=== PATIENT | male | born 1965 | race Caucasian/White ===

== ENCOUNTER 2018-09-19 17:37 | Outpatient (REF) | payer OTHER, SELFPAY ==
[2018-09-19 21:11] LABS: Anion Gap 10.3 mmol/L (3-11); BUN 17 mg/dL (7-18); CO2 26.7 mmol/L (21.0-32.0); Calcium 9.2 mg/dL (8.5-10.1); Chloride 103 mmol/L (98-107); Glucose 132 mg/dL (70-100); Potassium 3.9 mmol/L (3.5-5.1); Sodium 140 mmol/L (136-145)
== END 2018-09-19 17:57 ==
LOC: NCHCN 17:37
PROVIDERS: PCP Internal Medicine; Visit Provider Physician Assistant Medical
DX: I10 Essential (primary) hypertension (principal)
CPT/HCPCS: 80048

== ENCOUNTER 2020-01-10 10:32 | Outpatient (REF) | payer OTHER, SELFPAY ==
[2020-01-10 19:43] LABS: ALT 48 U/L (16-63); AST 32 U/L (15-37); Albumin 3.9 g/dL (3.4-5.0); Alkaline Phosphatase 59 U/L (46-116); Anion Gap 9.2 mmol/L (3-11); BUN 14 mg/dL (7-18); Bilirubin, Total 0.6 mg/dL (0.2-1.0); CO2 25.8 mmol/L (21.0-32.0); CREATININE 0.93 mg/dL (0.70-1.30); Calcium 8.6 mg/dL (8.5-10.1); Calculated LDL 82 mg/dL (<100); Chloride 105 mmol/L (98-107); Cholesterol 133 mg/dL (<200); Glucose 139 mg/dL (74-106); HDL Cholesterol 32 mg/dL (40-60); Potassium 4.5 mmol/L (3.5-5.1); Sodium 140 mmol/L (136-145); Triglyceride 99 mg/dL (<150)
[2020-01-10 20:03] LABS: Abs Immature Grans 0.08 k/cumm (0.0-0.09); Absolute Basophil Count 0.06 k/cumm (0.0-0.2); Absolute Eosinophil Count 0.21 k/cumm (0.0-0.7); Absolute Lymphocyte Count 2.64 k/cumm (1.2-3.4); Absolute Monocyte Count 0.71 k/cumm (0.11-0.7); Absolute Neutrophil Count 6.26 k/cumm (1.2-6.7); Basophils % 0.6; Eosinophils % 2.1; HCT 45.6 % (40.0-50.0); HGB 14.9 g/dL (13.5-17.5); Immature Grans % 0.8 %; Lymphocytes % 26.5; Mean Corp. HGB Concentration 32.7 g/dL (32.0-36.0); Mean Corpuscular Hemoglobin 28.2 pg (27.0-33.0); Mean Corpuscular Volume 86.4 fL (80-95); Monocytes % 7.1; Neutrophils % 62.9; Platelet Count 269 x1000/uL (130-400); RBC 5.28 m/cumm (4.50-6.00); RBC Distribution Width 14.1 % (11.8-14.1); White Blood Cell Count 9.96 k/cumm (4.4-10.8)
[2020-01-10 20:36] LABS: Hemoglobin A1C 6.7 % (3.8-5.6)
== END 2020-01-10 10:52 ==
LOC: NCHCN 10:32
PROVIDERS: PCP Internal Medicine; Visit Provider Physician Assistant
DX: Z00.00 Encounter for general adult medical examination without abnormal findings (principal); E78.5 Hyperlipidemia, unspecified; I25.10 Atherosclerotic heart disease of native coronary artery without angina pectoris; I10 Essential (primary) hypertension
CPT/HCPCS: 80053; 80061; 83036; 85025

== ENCOUNTER 2021-01-28 17:33 | Outpatient (REF) | payer SELFPAY ==
[2021-01-28 18:28] LABS: CREATININE 0.7 mg/dL (0.70-1.30)
== END 2021-01-28 17:34 | disposition home or self-care (01) ==
LOC: NCHCN 17:33
PROVIDERS: PCP Internal Medicine; Visit Provider Physician Assistant
DX: E11.9 Type 2 diabetes mellitus without complications (principal); I10 Essential (primary) hypertension
CPT/HCPCS: 82565

== ENCOUNTER 2022-02-01 17:48 | Outpatient (REF) | payer OTHER, SELFPAY ==
[2022-02-01 19:46] LABS: Anion Gap 9.5 mmol/L (3-11); BUN 19 mg/dL (7-18); CO2 25.5 mmol/L (21.0-32.0); CREATININE 0.8 mg/dL (0.70-1.30); Calcium 8.6 mg/dL (8.5-10.1); Chloride 106 mmol/L (98-107); Glucose 97 mg/dL (74-106); Potassium 3.9 mmol/L (3.5-5.1); Sodium 141 mmol/L (136-145)
== END 2022-02-01 17:49 | disposition home or self-care (01) ==
LOC: NCHCN 17:48
PROVIDERS: PCP Internal Medicine; Visit Provider Physician Assistant
DX: I10 Essential (primary) hypertension (principal); E11.9 Type 2 diabetes mellitus without complications
CPT/HCPCS: 80048

== ENCOUNTER 2023-01-31 18:47 | Outpatient (REF) | payer OTHER, SELFPAY ==
[2023-01-31 19:15] LABS: ALT 32 U/L (16-63); AST 29 U/L (15-37); Albumin 4.1 g/dL (3.4-5.0); Alkaline Phosphatase 59 U/L (46-116); Anion Gap 9.1 mmol/L (3-11); BUN 15 mg/dL (7-18); Bilirubin, Total 0.5 mg/dL (0.2-1.0); CO2 27.9 mmol/L (21.0-32.0); CREATININE 0.9 mg/dL (0.70-1.30); Chloride 106 mmol/L (98-107); Glucose 119 mg/dL (74-106); Sodium 143 mmol/L (136-145); Total Protein 7.4 g/dL (6.4-8.2)
== END 2023-01-31 18:48 | disposition home or self-care (01) ==
LOC: NCHCN 18:47
PROVIDERS: PCP Internal Medicine; Visit Provider Physician Assistant
DX: E11.9 Type 2 diabetes mellitus without complications (principal)
CPT/HCPCS: 80053; 82043; 82570

== ENCOUNTER 2023-08-01 19:08 | Outpatient (REF) | payer OTHER, SELFPAY ==
[2023-08-01 20:11] LABS: COMMENT (LAB VIEW ONLY) 123.44 mg/dL; Microalb ug/mg Crea 40.9 ug/mg Cr
== END 2023-08-01 19:09 | disposition home or self-care (01) ==
LOC: NCHCN 19:08
PROVIDERS: PCP Internal Medicine; Visit Provider Physician Assistant
DX: E11.9 Type 2 diabetes mellitus without complications (principal)
CPT/HCPCS: 82043; 82570; 83036

== ENCOUNTER 2023-08-02 20:06 | Outpatient (REF) | payer OTHER, SELFPAY ==
[2023-08-02 21:18] LABS: Hemoglobin A1C 7.2 % (<5.7)
== END 2023-08-02 20:07 | disposition home or self-care (01) ==
LOC: NCHCN 20:06
PROVIDERS: PCP Internal Medicine; Visit Provider Physician Assistant
DX: E11.9 Type 2 diabetes mellitus without complications (principal)
CPT/HCPCS: 83036

== ENCOUNTER 2024-02-06 19:15 | Outpatient (REF) | payer OTHER, SELFPAY ==
[2024-02-06 21:08] LABS: Abs Immature Grans 0.08 10^3/uL (0.0-0.06); Absolute Basophil Count 0.09 10^3/uL (0.0-0.2); Absolute Eosinophil Count 0.26 10^3/uL (0.0-0.7); Absolute Lymphocyte Count 2.63 10^3/uL (1.2-3.4); Absolute Neutrophil Count 6.17 10^3/uL (1.2-6.7); Basophils % 0.9 %; Eosinophils % 2.6 %; HCT 46.9 % (40.0-50.0); HGB 15.2 g/dL (13.5-17.5); Immature Grans % 0.8 %; MCH 28.8 pg (27.0-33.0); MCHC 32.4 % (32.0-36.0); MCV 89 fL (80-95); MPV 10.9 fL (8.0-11.0); Monocytes % 8.9 %; Neutrophils % 60.8 %; Platelet Count 272 10^3/uL (130-400); RBC 5.27 10^6/uL (4.36-5.78); RDW 13.6 % (11.8-14.1); RDW-SD 44.3 fL; WBC 10.13 10^3/uL (4.4-10.8)
[2024-02-06 21:30] LABS: ALT 29 U/L (16-63); AST 26 U/L (15-37); Albumin 4.2 g/dL (3.4-5.0); Alkaline Phosphatase 66 U/L (46-116); BUN 15 mg/dL (7-18); CREATININE 0.9 mg/dL (0.70-1.30); Calcium 9.1 mg/dL (8.5-10.1); Chloride 107 mmol/L (98-107); Estimated GFR 98.38 (mL/min/1.73m2); Glucose 119 mg/dL (74-106); LDL CHOLESTEROL 79 mg/dL (<100); Potassium 3.9 mmol/L (3.5-5.1); Sodium 144 mmol/L (136-145); TSH 1.63 uIU/Ml (0.36-3.74); Total Protein 7.8 g/dL (6.4-8.2)
[2024-02-07 19:16] LABS: Hepatitis C Ab w Rflx HCV PCR Negative (Negative)
[2024-02-07 19:21] LABS: HIV-1/2 Ag & Ab Screen Negative (Negative)
== END 2024-02-06 19:16 | disposition home or self-care (01) ==
LOC: NCHCN 19:15
PROVIDERS: PCP Internal Medicine; Visit Provider Physician Assistant
DX: E11.9 Type 2 diabetes mellitus without complications (principal); R00.8 Other abnormalities of heart beat; Z11.4 Encounter for screening for human immunodeficiency virus [HIV]; Z11.59 Encounter for screening for other viral diseases
CPT/HCPCS: 80053; 83721; 86803; 87389; 84443; 85025

== ENCOUNTER 2024-05-06 01:49 | Outpatient (CLI) | payer OTHER, SELFPAY ==
--- NOTE | 2024-05-06 09:30 | DI.US_ITS ---
APPROVED REPORT EXAM: Comprehensive 2D, Doppler, and color-flow Echocardiogram Patient Location: Out-Patient [employer] Supervisor: Ross Cook RDCS (AE) Indications: Afib Other Information Technically limited study due to body habitus. Conclusion Normal left ventricular wall thickness and chamber size. Ejection fraction is 55 to 60%. Wall motio n is normal Normal right ventricular size and function Left atrium is moderately dilated. Right atrium is mildly dilated There are no structural valvular abnormalities Mild mitral regurgitation Wall motion Left Ventricle Left ventricle is mildly dilated. The left ventricular systolic function is normal. The left ventricu lar ejection fraction is within the normal range. There is normal left ventricular wall thickness. Th ere is normal LV segmental wall motion. There is no ventricular septal defect visualized. LVEF is 55- 60 %. Right Ventricle The right ventricle is normal size. The right ventricular systolic function is normal. Atria Left atrium is moderately dilated. Right atrium is mildly dilated. The interatrial septum is intact w ith no evidence for an atrial septal defect. Aortic Valve The aortic valve is normal in structure. Aortic valve is trileaflet. There is no aortic valvular sten osis. No aortic regurgitation is present. Mitral Valve The mitral valve is normal in structure. No evidence of mitral valve stenosis. Mild mitral regurgitat ion. Tricuspid Valve The tricuspid valve is normal in structure. There is no tricuspid valve stenosis. Trace tricuspid reg urgitation. Unable to assess PA pressure. Pulmonic Valve The pulmonary valve is normal in structure. There is no pulmonic valvular stenosis. There is no pulmo coreen valvular regurgitation. Great Vessels The aortic root is normal in size. The ascending aorta is normal in size. Aortic arch is normal in ca liber. IVC is normal in size and collapses >50% with inspiration. Pericardium There is no pericardial effusion. 2D Dimensions IVSD d PLAX 0.94 cm M: 0.6-1.2 Ao Root d 3.04 cm M: 3.1 - 3.7 LVPW d PLAX 0.89 cm M: 0.6 - 1.2 Ao Asc Diam d 3.24 cm M: 2.6 - 3.4 LVID d PLAX 6.36 cm M: 4.2 - 5.8 LVDs 4.22 cm M: 2.5 - 4.0 LV EF Teichholz 61.3 % FS 33.64 % LV EDV (Teich) 205.2 mL LV ESV (Teich) 79.3 mL Stroke Vol Index (Teich) 50.35 M-Mode TAPSE 2.95 cm (M/F) >1.7 Auto EF LV EDV A4C 186.5 mL LV EDV A2C 133.5 mL LV EDV BP 158.6 mL LV ESV A4C 82.0 mL LV ESV A2C 55.4 mL LV ESV BP 67.6 mL LVEF(%) A4C 56.0 % LVEF(%) A2C 58.5 % LVEF(%) BP 57.3 % LV SV A4C 104.5 ml LV SV A2C 78.1 ml LV SV BP 90.9 ml LV CO A4C 5.4 L/min LV CO A2C 4.0 L/min LV CO BP 4.7 L/min HR A4C 51.21 BPM HR A2C 50.99 BPM LV EDV Index (BP) LA Volume LA Length A4C 7.1 cm LA Length A2C 7.2 cm LA Area A4C s 22.96 cm2 LA Area A2C s 23.74 cm2 LA Vol A4C A-L 62.99 mL LA Vol A2C A-L 66.79 mL LA Vol Biplane A-L 65.1 mL LA Vol/BSA A4C A-L LA Vol/BSA A2C A-L LA Vol/BSA BP A-L 26.1 mL/m2 LA Vol A4C MOD 59.9 mL LA Vol A2C MOD 63.2 mL LA Vol BP MOD 61.7 mL RA Volume RA Area A4C 16.1 cm2 RA ESV A4C (A-L) 38.5mL RA Vol/BSA A4C A-L RA Length A4C 5.7 cm RA ESV A4C (MOD) 38.7mL LV Diastology MV E' medial 0.095 (>0.07 m/s) MV E Vmax 1.20 (0.4-1.3 m/s) MV E/E' MED 12.72 (<14) MV A Vmax 0.40 (0.4-1.3 m/s) MV E' lateral 0.118 (>0.1 m/s) E/A Ratio 3.0 MV E/E' LAT 10.21 (<14) MV E' Average 0.106 m/s MV E/E'(average) 11.33 Aortic Valve AoV Vmax 1.58 m/s LVOT Vmax 1.04 m/s AoV Peak Grad 10.0 mmHg LVOT Peak Grad 4.3 mmHg AoV Area (Vmax) 2.13 cm2 LVOT VTI 0.235 m AoV VTI 0.362 m LVOT Mean Grad 2.6 mmHg AoV Mean John. 1.10 m/s LVOT SV 76.35 mL AoV Mean Grad 5.5 mmHg LVOT Diam s 2.00 cm AoV Area (VTI) 2.11 cm2 AV Regurg Peak Gr. 10.04 mmHg Velocity Ratio 0.66 Mitral Valve MV DT 176 (160-240 msec) MV Vmax TIPS 1.13 m/s MV Mean Grad 1.4 (<2mmHg) MV VTI 0.401 m Pulmonary Valve PV Vmax 0.86 (0.5-1.5 m/s) RVOT Vmax 0.70 m/s PV Peak Grad 3.0 mmHg RVOT Peak Gr. 1.9 mmHg PV Mean John 0.64 m/s RVOT VTI 0.172 m PV Mean Grad 1.9 mmHg RVOT Mean Gr. 1.2 mmHg
== END 2024-05-06 02:09 ==
LOC: DI 01:49
PROVIDERS: PCP Physician Assistant; Visit Provider Internal Medicine Cardiovascular Disease
DX: I48.91 Unspecified atrial fibrillation (principal)
CPT/HCPCS: 93306

== ENCOUNTER 2024-11-04 03:16 | Outpatient (CLI) | payer OTHER, SELFPAY ==
[2024-11-04 15:29] LABS: HCT 44.8 % (40.0-50.0); HGB 14.1 g/dL (13.5-17.5); MCHC 31.5 % (32.0-36.0); MCV 89 fL (80-95); MPV 9.8 fL (8.0-11.0); Platelet Count 209 10^3/uL (130-400); RBC 5.03 10^6/uL (4.36-5.78); RDW 13.8 % (11.8-14.1); RDW-SD 44.5 fL; WBC 9.23 10^3/uL (4.4-10.8)
[2024-11-04 16:15] LABS: Anion Gap 8.1 mmol/L (3-11); BUN 11 mg/dL (7-18); CO2 26.9 mmol/L (21.0-32.0); CREATININE 0.9 mg/dL (0.70-1.30); Calcium 8.9 mg/dL (8.5-10.1); Chloride 107 mmol/L (98-107); Estimated GFR 97.78 (mL/min/1.73m2); Glucose 119 mg/dL (74-106); Potassium 3.7 mmol/L (3.5-5.1); Sodium 142 mmol/L (136-145)
[2024-11-06 17:50] LABS: Fructosamine 262 mcmol/L (200 - 285)
== END 2024-11-04 03:17 | disposition home or self-care (01) ==
LOC: LBO 03:16
PROVIDERS: PCP Physician Assistant; Visit Provider Student in an Organized Health Care Education/Training Program
DX: M17.11 Unilateral primary osteoarthritis, right knee (principal); Z01.818 Encounter for other preprocedural examination; E11.9 Type 2 diabetes mellitus without complications
CPT/HCPCS: 36415; 80048; 85027; 82985

== ENCOUNTER 2024-11-04 14:42 | Outpatient (CLI) | payer OTHER, SELFPAY ==
--- NOTE | 2024-11-04 14:05 | DI.RAD_ITS ---
Exam(s) XR STANDING ALIGNMENT EXAM: XR STANDING ALIGNMENT CLINICAL HISTORY: PRE OP R TKA. TECHNIQUE: 2D digital imaging was performed. Four images were obtained. COMPARISON: CR XR KNEE 3V RT from 02/08/2024 FINDINGS: BONES: There is a round sclerotic focus seen in the intertrochanteric region of the left femur. In t he right knee there is moderate osteoarthritis in the lateral joint compartment characterized by join t space narrowing and osteophytes. In the left knee, there is mild osteoarthritis in the lateral mara nt compartment. There is chondrocalcinosis in the medial femoral tibial joint on the left knee. The ankles are well maintained.There is no significant leg length discrepancy. SOFT TISSUE: Normal. IMPRESSION: Bilateral osteoarthritis of the knees, right greater than left. DATA REPOSITORY: RADIATION DOSE DELIVERED:
== END 2024-11-04 14:43 | disposition home or self-care (01) ==
LOC: DIORS 14:43
PROVIDERS: PCP Physician Assistant; Referring Provider Physician Assistant; Visit Provider Physician Assistant
DX: M17.11 Unilateral primary osteoarthritis, right knee (principal)
CPT/HCPCS: 77073

== ENCOUNTER 2024-11-19 06:59 | Day surgery (SDC) | payer OTHER, SELFPAY ==
[2024-11-19] VITALS (20 sets, daily range): BP systolic 99–177; BP diastolic 55–107; PULSE 54–95; RESP 14–20; TEMP 36–36.6; O2SAT 86–99; BMI 44.7
--- NOTE | 2024-11-19 07:18 | PDOC.DSDIS_ITS ---
Date of service: 11/19/24 Discharge Plan Disposition Patient Disposition: Home Condition: Good Discharge Details Reason For Visit: Right knee DJD Attending Provider: Costa Vera Primary Care Provider: Britt Adair Home Meds and New Rx's Prescriptions: New celecoxib [Celebrex] 200 mg capsule 200 mg PO BID PRNQty: 60 0RF Rx Instructions: Take one tablet twice daily for pain and inflammation acetaminophen 500 mg tablet 1,000 mg PO Q8H PRN Qty: 90 0RF Rx Instructions: Take two tablets up to every 8 hours as needed for pain pantoprazole 40 mg tablet,delayed release (DR/EC) 40 mg PO DAILY Qty: 14 0RF docusate sodium [Colace] 100 mg capsule 100 mg PO BID Qty: 28 0RF gabapentin 300 mg capsule 300 mg PO QHS Qty: 14 0RF Rx Instructions: Take one tablet at bedtime oxycodone 5 mg tablet 5 mg PO Q4H PRNQty: 18 0RF Rx Instructions: Take one tablet up to every 4 hours as needed for severe postoperative pain Continued aspirin [Adult Aspirin Regimen] 81 mg tablet,delayed release (DR/EC) 81 mg PO DAILY lisinopril 20 mg tablet 20 mg PO DAILY metoprolol succinate 25 mg tablet extended release 24 hr 25 mg PO DAILY Xarelto 20 mg tablet 20 mg PO DAILY Rx Instructions: must administer with evening meal rosuvastatin 20 mg tablet 20 mg PO DAILY nitroglycerin 0.4 mg tablet, sublingual Patient Comments: DISSOLVE ONE TABLET UNDER THE TONGUE EVERY 5 MINUTES NEEDED FOR CHEST PAIN. DO NOT EXCEED A TOTAL OF 3 DOSES IN 15 MINUTES Discharge Instructions Additional Instructions: Total Knee Discharge Instructions Activity: The most important activity is to walk and to work on gentle motion (both flexion and extension). You should try to take short walks a few times a day. It is important that when resting you work on keeping the knee straight. Avoid putting a pillow behind the knee as this will encourage flexion. Work on range of motion exercises as provided by Physical Therapy. - Start outpatient physical therapy within 2 weeks. - You should wear the AMY hose on both legs for 2 weeks. You may remove these at night. You may also use any compression sock in place of the AMY hose. - Utilize [employer] to review exercises, see videos on exercises and obtain basic information pertaining to your surgery and your recovery. Dressing: Remove the Balaji wrap by 2 days after your surgery and put on the AMY stocking given to you from the hospital. Keep the surgical dressing (underneath the BALAJI wrap) in place for at least one week. After the first week it may be removed and replaced with light gauze and tape or nothing. The wound and dressing may get wet after 3 days but avoid soaking the dressing or otherwise it will need to be changed. Many people prefer covering the dressing with cling wrap (saran wrap) to minimize it from getting soaked. If it gets wet, just pat dry. If it starts to peel off then it will need to be changed. Medications: - You should take Tylenol and anti-inflammatory Celebrex as your primary pain control medications. If the Celebrex is too expensive or not covered, please call the office for another alternative (Advil/Ibuprofen or Naproxen/Aleve) - You have been prescribed a stronger pain medication Oxycodone for breakthrough pain, take as needed as prescribed. - You have also been prescribed a stomach acid reduction agent Pantoprozole to help reduce stomach acid and reflux. - You have been prescribed Gabapentin to take at night for restlessness and nerve pain. - You will resume your normal anticoagulation of Xarelto and Aspirin tomorrow. - If you have constipation you should take Colace (which has been prescribed) or Miralax (which is available [id number]). It takes most people 3-4 days to have a bowel movement. Follow-up: 2 weeks If you have any acute concerns or questions, please do not hesitate to contact the office at [phone]. You may contact Dr. Vera with any questions after hours through the hospital at [phone] or on his cell phone at [phone]. Referrals: Costa Vera MD [ [facility] STAFF PHYSICIAN] - Equipment/Supplies: Walker Activity:: Elevate Remove Dressings/Wound Care:: Do Not Remove Shower/Bathe:: Cover Diet:: As Tolerated Discharge Orders Discharge Orders: Discharge Order (Routine); Ordered 11/19/24 Ordered By: Michaela Espitia
[2024-11-19] MEDS: Celecoxib 200 MG CAP 400 MG PO (07:33)
[2024-11-19] MEDS: Gabapentin 300 MG CAP PO (07:33)
[2024-11-19] MEDS: Acetaminophen 500 MG TAB 1000 MG PO (07:33)
--- NOTE | 2024-11-19 07:48 | ANES.PREOP_ITS ---
General Info Date of Service Date Performed: 11/19/24 Height: 5 ft 9 in Weight: 137.5 kg Body Mass Index (BMI): 44.7 Surgical Procedure: Operation Date: 11/19/24 09:25 Proposed Procedure Side Surgeon p Knee Total Arthroplasty Right Costa Vera MD Actual Procedure Side Surgeon p Knee Total Arthroplasty Right Costa Vera MD Pre-Op Diagnosis Post-Op Diagnosis Osteoarthritis of right knee Meds Allergies and Home Medications Allergies Allergy/AdvReac Type Severity Reaction Status Date / Time No Known Allergies Allergy Verified 11/19/24 07:12 Home Medication ?Medication ?Instructions ?Recorded aspirin 81 mg tablet,delayed 81 mg PO DAILY 02/20/24 release (Adult Aspirin Regimen) lisinopril 20 mg tablet 20 mg PO DAILY 02/20/24 metoprolol succinate 25 mg 25 mg PO DAILY 02/20/24 tablet,extended release 24 hr rivaroxaban 20 mg tablet (Xarelto) 20 mg PO DAILY 02/20/24 rosuvastatin 20 mg tablet 20 mg PO DAILY 11/04/24 acetaminophen 500 mg tablet 1,000 mg (2 x 500 mg) PO Q8H PRN 11/19/24 pain #90 tabs celecoxib 200 mg capsule (Celebrex) 200 mg PO BID PRN #60 caps 11/19/24 docusate sodium 100 mg capsule 100 mg PO BID #28 caps 11/19/24 (Colace) gabapentin 300 mg capsule 300 mg PO QHS #14 caps 11/19/24 nitroglycerin 0.4 mg sublingual mg 11/19/24 tablet oxycodone 5 mg tablet 5 mg PO Q4H PRN #18 tabs 11/19/24 pantoprazole 40 mg tablet,delayed 40 mg PO DAILY #14 tabs 11/19/24 release Current Visit Medications: Current Medications Generic Name Dose Route Start Last Admin Trade Name Freq PRN Reason Stop Dose Admin Acetaminophen 1,000 mg 11/19/24 06:00 11/19/24 07:33 Acetaminophen 500 Mg Tab PO 11/19/24 23:59 1,000 mg PREOP JUAN FRANCISCO Administration Celecoxib 400 mg 11/19/24 06:00 11/19/24 07:33 Celecoxib 200 Mg Cap PO 11/19/24 23:59 400 mg PREOP JUAN FRANCISCO Administration Gabapentin 300 mg 11/19/24 06:00 11/19/24 07:33 Gabapentin 300 Mg Cap PO 11/19/24 23:59 300 mg PREOP JUAN FRANCISCO Administration Hydromorphone HCl 0.5 mg 11/19/24 07:17 Hydromorphone 2 Mg/Ml Syr IVP 12/19/24 07:16 Q2H PRN PRN Ringer's Solution 1,000 mls @ 80 mls/hr 11/19/24 06:00 IV 11/19/24 23:59 INFUSION JUAN FRANCISCO Cefazolin Sodium 3,000 mg/ 100 mls @ 200 mls/hr 11/19/24 06:00 Sodium Chloride IV 11/19/24 23:59 PREOP JUAN FRANCISCO Tranexamic Acid/Sodium Chloride 1,000 mg in 100 mls @ 600 mls/hr 11/19/24 06:00 IVPB 11/19/24 23:59 DIRECTED JUAN FRANCISCO Cefazolin Sodium/Dextrose 1 gm in 50 mls @ 100 mls/hr 11/19/24 13:00 Ancef Duplex IVPB 11/20/24 05:29 Q8H JUAN FRANCISCO IV Miscellaneous Supplies 1 each 11/19/24 06:00 Iv Access IV 11/19/24 23:59 DIRECTED JUAN FRANCISCO Oxycodone HCl 0 mg 11/19/24 07:17 Oxycodone 5 Mg Tab PO 12/19/24 07:16 Q3H PRN PRN Pain Sodium Chloride 0 ml 11/19/24 06:00 Normal Saline Flush 10 Ml Syr IV 11/19/24 23:59 PRN PRN Sodium Chloride 0 ml 11/19/24 06:00 Normal Saline 10 Ml Vial IJ 11/19/24 23:59 DIRECTED PRN Sterile Water 0 ml 11/19/24 06:00 Water,Injection,Sterile 10 Ml Vial IJ 11/19/24 23:59 DIRECTED PRN Tranexamic Acid 1,300 mg 11/19/24 07:17 Tranexamic Acid 650 Mg Tab PO 12/19/24 07:16 ONCE PRN postoperative PFSH Active Problems Active Problems: Problem Status Onset Code Osteoarthritis of right knee Acute M17.11 NATHANIEL (obstructive sleep apnea) Chronic G47.33 Essential hypertension Acute I10 Hyperlipidemia Acute E78.5 Atherosclerosis of coronary artery without angina pectoris Acute I25.10 Type 2 diabetes mellitus Acute E11.9 Afib Chronic I48.91 Medical History Medical History Former smoker Surgical History Surgical History H/O cardiac catheterization stent placement 2009. f/u with [facility] annually Tobacco Smoking/Tobacco Use Status: Former Tobacco Use Passive smoking exposure: No Alcohol Alcohol Intake: current Alcohol intake frequency: holidays/special occasions only Substance Use Substance use: Never Substance use type: does not use Vital Signs and Lab Results Vital Signs Most Recent Vital Signs in EMR: Most Recent Vital Signs Temp Pulse Resp BP Pulse Ox 36.3 C L 68 16 177/105 H 96 11/19/24 07:06 11/19/24 07:06 11/19/24 07:06 11/19/24 07:06 11/19/24 07:06 Point of Care Results Point of Care Results: Finger Stick Blood Glucose 114 11/19/24 07:29 Lab Results Blood Type / Crossmatch: No Data to Display Complete Blood Count: White Blood Count 9.23 10^3/uL (4.4-10.8) 11/04/24 15:20 Red Blood Count 5.03 10^6/uL (4.36-5.78) 11/04/24 15:20 Hemoglobin 14.1 g/dL (13.5-17.5) 11/04/24 15:20 Hematocrit 44.8 % (40.0-50.0) 11/04/24 15:20 Platelet Count 209 10^3/uL (130-400) 11/04/24 15:20 Complete Metabolic Panel: Sodium 142 mmol/L (136-145) 11/04/24 15:20 Potassium 3.7 mmol/L (3.5-5.1) 11/04/24 15:20 Chloride 107 mmol/L (98-107) 11/04/24 15:20 Carbon Dioxide 26.9 mmol/L (21.0-32.0) 11/04/24 15:20 BUN 11 mg/dL (7-18) 11/04/24 15:20 Creatinine 0.9 mg/dL (0.70-1.30) 11/04/24 15:20 Est GFR (CKD-EPI 2020) 97.78 (mL/min/1.73m2) 11/04/24 15:20 Calcium 8.9 mg/dL (8.5-10.1) 11/04/24 15:20 Glucose 119 mg/dL (74-106) H 11/04/24 15:20 Hemoglobin A1c 7.4 % (4.5-5.7) H 11/04/24 15:02 Liver Function Panel: No Data to Display Coagulation Panel: No Data to Display Cardiac Panel: No Data to Display Arterial Blood Gas: No Data to Display Venous Blood Gas: No Data to Display Pancreas Panel: No Data to Display Thyroid Panel: No Data to Display Infectious Disease: No Data to Display Blood Cultures: No Data to Display Toxicology Panel: No Data to Display Imaging and Studies Imaging and Studies Study information below may be from another EMR and interpreted by another provider. Please see original notes in EMR for more complete details. Echocardiogram Summary: 05/06/24: Conclusion Normal left ventricular wall thickness and chamber size. Ejection fraction is 55 to 60%. Wall motion is normal Normal right ventricular size and function Left atrium is moderately dilated. Right atrium is mildly dilated There are no structural valvular abnormalities Mild mitral regurgitation Anesthesia Assessment and Plan Anesthesia History Personal History: No History of Anesthesia Complications Family History: No Family History of Anesthesia Complications Exercise Tolerance Exercise Tolerance: Metabolic Equivalents>4 Cardiac & Pulmonary Exam Cardiac Exam: Normal S1/S2 Heart Sounds Pulmonary Exam: Clear Bilateral Breath Sounds Implantable Cardiac Device Does patient have a Pacemaker or an ICD?: No Airway Exam Known Difficult Airway: No Mallampati Class: 2 Mouth Opening: Normal (> 3cm) Thyromental Distance: Greater than 3 cm Neck Range of Motion: Full ROM Neck Circumference: Thick Teeth Condition: Normal Dentition ASA Classification ASA Score: ASA 3 Emergency Case?: No NPO Status NPO Status: NPO Clears >2 hours, Solids >8 hours Anesthesia Plan Resuscitation Status: Full Code Anesthesia Technique: Spinal Anesthesia Airway Planned: Natural Airway Pain Management: Surgeon and patient request nerve block Monitors Used: Standard Monitors Preoperative Comments:: SAB with GA/ETT backup. Difficult IV, will plan ultrasound guided.
[2024-11-19] MEDS: Lactated Ringers 1,000 ML 80 ML IV (08:33)
--- NOTE | 2024-11-19 09:02 | W.PM.OP ---
Operative Note Operative Note PRE-OP DIAGNOSIS: Right Knee Osteoarthritis POST-OP DIAGNOSIS: same PROCEDURE: Right Total Knee Replacement SURGEON: Costa Vera [employer] PORTAL DEVELOPER: Michaela Espitia ANESTHESIA TYPE: General LMA/ETT Refer to Anesthesia Record ESTIMATED BLOOD LOSS: 150 PATHOLOGY: none sent TOURNIQUET TIME: 0 COMPLICATIONS: None Patient was transported to: PACU Patient's condition: stable Implants: 1. Depuy Attune Cementless Cruciate Retaining Femoral Component, Size 7 2. Depuy Attune Cementless Fixed Bearing Tibial Component, Size 7 3. Depuy Attune 7x6mm CR/FB Poly 4. Depuy Attune Patellar Component, Size 38 Indications: I have seen Henri in clinic for symptoms of knee arthritis, confirmed with radiographic findings. He has exhausted nonoperative methods and was having significant limitations in daily function and desired better function and less pain. I discussed the technical details of a knee replacement. I explained the risks of the procedure to include, but not limited to, bleeding, infection, pain, stiffness, fracture, damage to nerves and vessels, damage to muscles and tendons, loosening, need for repeat procedure, blood clot and cardiopulmonary demise. Despite these risks, Henri elected to proceed. Findings: There was significant signs of arthritis throughout the knee. Procedure Description: Henri was greeted in the preoperative holding area where the correct side was identified and marked. The consent was reviewed with the patient and signed. The history and physical was updated. All questions were answered. Preoperative medications were administered: Acetaminophen 1000mg, Celebrex 400mg, and Gabapentin 300mg. An adductor canal block was then administered by the anesthesia team in the DSU. Henri was taken back to the operating room. A spinal anesthestic was then attempted but unsuccessful so he was converted to a general anesthetic. The patient was placed into the supine position on the operating room table. Posts were placed for positioning during the procedure. All bony prominences were well padded. Prophylactic antibiotics in the form of Cefazolin were administered. 1g of Tranxemic Acid was given intravenously within 30 minutes of incision. The right leg was then prepped with Chloraprep and draped in a standard fashion with impervious stockinette. A second prep with Chloraprep was performed prior to application of Iodine impregnated skin protection. A timeout to confirm correct identity, side and site, procedure, allergies, anesthesia, and medical concerns was performed. With the knee in some flexion, a midline incision was made overlying the knee. Full thickness skin flaps were raised once the extensor mechanism was encountered. These were raised medially and laterally. Any bleeding was controlled with electrocautery. Once the extensor mechanism was fully exposed, a medial parapatellar arthrotomy was performed in a flexed position. All bleeding from the arthrotomy and the geniculate arteries was coagulated. A medial subperiosteal peel was performed with electrocautery to the midcoronal plane. The fat pad was removed while keeping the patellar tendon protected. The anterior distal femur synovium was removed for later visualization. The ACL and PCL were resected and the anterior horn of the lateral meniscus was transected. The knee was then flexed with the patella everted. Large osteophytes from the tibia were removed. Large osteophytes from the femur were removed. Using a step drill, and based on preoperative templating, the femoral canal was entered. This was done with a step drill without any difficulty. The intramedullary distal femoral cut guide was inserted, set to a 5 degree valgus cut and 9mm cut thickness. There was some hypoplasia of the lateral femoral condyle and any remnant cartilage of the medial femoral condyle was removed for appropriate thickness. The distal femoral cut guide was then held in position and pinned. With the soft tissues protected, the distal cut was performed. This was passed over a few times to ensure a planar cut. I then turned attention to the tibia. The extramedullary guide was placed onto the leg. The distal aspect was slid medial to adjust for position of center of ankle and stay in line with shaft of the tibia. Approximately 3-5 degrees of posterior slope was kept in the proximal cutting guide. The center of the guide was aligned with the PCL. The stylus was used to assess cut thickness. The lateral side, most involved side, was set for a 5mm cut, corresponding to 9mm medially. This was then held in position and pinned into place with 2 additional pins and a cross pin for stability. The medial and lateral collateral ligaments were protected and the cut was performed. With this completed, it was assessed and noted to be of appropriate dimensions. The guide was removed. A spacer block was inserted and the knee was brought into extension. The 6mm spacer block provided full extension, without hyperextension and with stability of both the medial and lateral collateral ligaments was assessed. The pins from the femur and the tibia were then removed. The distal femur was then sized. The anterior stylus was placed onto the lateral ridge of the anterior femur. This indicated a size 7 femur. The external rotation of the guide was adjusted to 5 degrees to match the epicondylar axis, perpendicular to Iker?s line. The 4-in-1 cutting guide was the placed. The posterior medial femur cut was evaluated and appeared of good thickness. The spacer block was inserted underneath the cutting guide and stability was confirmed in 90 degrees of flexion. An tanisha wing was used to confirm appropriate position of the anterior cut to avoid notching. This cutting guide was ensured to be flush on the cut surface and then pinned into place with headed pins. While protecting the soft tissues, quad tendon, and collateral ligaments, the anterior and posterior cuts were performed with a saw. The central two pins were removed and the posterior and anterior chamfers were cut next. The notch-cutting guide was placed. This was pinned to lateralize the femoral component as much as possible while keeping it flush on the cut surface. This was then pinned into position. A reciprocating saw was used to make the notch cut. A rasp smoothed the cut surfaces. The medial and lateral menisci were removed. A trial femoral component was then inserted, impacted down to the cut surfaces, and the lug holes were drilled. A provisional trial tibial component was placed and the knee was brought through range of motion. There was noted to be excellent extension and flexion. There was no significant instability. The patella was tracking without thumbs. A size 6mm polyethylene component provided the best range of motion and stability with less than 2mm gapping with medial and lateral stress and full extension without significant hyperextension. The tibial cut surface was fully exposed. The tibia was then sized as a 7. The tibia had been previously marked during trialing to correspond to the center of the tibial component to help with rotation. The trial was aligned to this julio césar, approximately rotated to the medial 1/3rd of the tibial tubercle. The trial was pinned into place. The tibia was prepared with a reamer and a keel punch and lug holes. The knee was then brought into extension and the patella was measured as 24mm. Using the patellar clamp and cut guide, this was resected to a flat surface with at least 13mm of thickness remaining. The size 38 patella fit the best. This was oriented and then clamped into position. The lugs were drilled. The trial components were removed. The final components were opened on the back table. The periosteal and capsular tissues, especially posteriorly, around the knee were then systematically injected with a periarticular cocktail consisting of 246mg of Ropivacaine, 0.5mg of Epinephrine, 0.08mg of Clonidine, and 30mg of Ketorolac, diluted to 100cc. On the back table, with the implants opened. The cement was mixed. One batch of high viscosity cement was prepared with vacuum assistance. After the cement was ready a small amount was placed on the cut surface of the patella and the patellar button was clamped into position and held. The cementless knee components were placed. Starting with the tibial component, the tibia was subluxed anteriorly and the lug holes of the component were lined up. The tibia was then impacted with an impactor and mallet until the tibial component was in contact with the tibia. Then, the femoral component was inserted. The lug holes were aligned and the component was impacted into position. The knee was irrigated with Surgiphor Betadine solution. This was allowed to sit in the knee for 3 minutes and then it was irrigated out with saline. After the cement had finally cured, approximately 15min, the clamp was removed from the patella and the knee was taken through range of motion. The patella was tracking with a no-thumbs technique. The capsule was then reapproximated with a No. 1 Vicryl at multiple locations. The capsule was finally closed with a No. 2 Stratafix, barbed suture. Deep tissues were then reapproximated with 0 Vicryl and 2-0 Vicryl. The skin was closed with a running 3-0 Monocryl in a subcuticular fashion. This was reinforced with skin glue. A Mepilex silver dressing was applied along with a [id number] SILKE wrap. A CryoCuff was applied. Henri was transferred to the hospital bed without difficulty an suffering no apparent complication. Henri has a good prognosis. Physical therapy will start today and without restrictions, weight-bearing as tolerated. His home dose of Rivaroxaban will be used for DVT prophylaxis. Date of Procedure: 11/19/24
[2024-11-19] MEDS: ceFAZolin 3,000 MG in Normal Saline 100 ML 200 MG IV (09:16)
[2024-11-19] MEDS: TRANEXAMIC ACID/SOD. CHL. 1,000 MG/100 ML BAG 600 MG IVPB (09:22)
--- NOTE | 2024-11-19 09:49 | W.ANESNERVE ---
Nerve Block Single Injection Procedure Date and Time Date Performed: 11/19/24 Procedure Start: 08:33 Location Where Procedure Performed Procedure Location: Day Surgery Unit Reason Performed: Postoperative Analgesia Requesting Provider: Costa Vera Timeout Performed Timeout Performed: Yes Monitoring Used ECG, Blood Pressure, SpO2 and See EMR for corresponding vital signs Sterility Sterility: Hand Hygiene, Surgical Cap, Surgical Mask, Sterile Gloves and Chlorhexidine Sedation Given During Procedure Sedation Given (Indicate Dose Given): Versed IV Dose:: 2mg Patient Mental Status Patient Mental Status: Sedate with meaningful communication Nerve Block 1st Nerve Block: Laterality: Right Block Type: Adductor Canal Ultrasound Image Saved?: Yes Needle / Catheter Used: 120mm SonoPlex II Local Anesthetic Bolus (Indicate Dose Given): Lidocaine used for local infiltration of skin, Injected in 3-5ml increments after negative blood aspiration, Bupivacaine 0.25% Dose:: 10mL and Exparel Dose:: 10mL Additives (Indicate Dose Given): None Ultrasound: Sterile probe cover and gel used Nerve Stimulator: Supplement to Ultrasound use and No twitch or parasthesia noted < 0.5 mA Paresthesia: None Procedure Tolerated: No Complications and Patient tolerated well Procedure Outcome: Successful Performed By: Stephania Sanders
[2024-11-19] MEDS: fentaNYL 100 MCG/2 ML VIAL IVP (11:28)
--- NOTE | 2024-11-19 12:50 | W.ANESPOSTOP ---
Postoperative Evaluation Date, Time and Location Date Performed: 11/19/24 Time Performed: 12:35 Patient Location: Day Surgery Unit Vital Signs Most Recent Imported Vital Signs: Most Recent Vital Signs Temp Pulse Resp BP Pulse Ox 36 C L 70 16 103/77 94 11/19/24 11:58 11/19/24 11:58 11/19/24 11:58 11/19/24 11:58 11/19/24 11:58 Pain Score Most Recent Pain Score: Most Recent Pain Score Pain Level 0 11/19/24 11:58 Assessment Mental Status: Awake (Alert & Oriented to Patient Baseline) Airway and Respiratory Function: Patent airway with normal (patient baseline) respiratory exam Cardiovascular Function: Hemodynamically Stable Hydration Status: Adequately Hydrated Nausea & Vomiting: No Nausea or Vomiting Pain: Pt. Denies Any Pain Peripheral Nerve Block: Regional nerve block not resolved at time of post operative discharge
--- NOTE | 2024-11-19 13:38 | PT.INIE ---
PT Notes Visit Reasons: Right knee DJD Physical Therapy Day Surgery Initial Evaluation Date: 11/19/2024 Referring Doctor: Michaela Espitia IT INFRASTRUCTURE CONSULTANT / Dr Vera PT Orders: PT CONSULT: s/p ortho Surgery Precautions: WBAT RLE Patient Profile/Admitting Diagnosis: Patient is 59-year-old male s/p elective R TKA with Nerve block by Dr Vera. Post op uncomplicated. PMHX: Osteoarthritis of right knee (Acute) Steroid injection: 07/18/24; 04/18/2024OSA (obstructive sleep apnea) (Chronic) Essential hypertension (Acute) Hyperlipidemia (Acute) Atherosclerosis of coronary artery without angina pectoris (Acute) Type 2 diabetes mellitus (Acute) Afib (Chronic) Former smoker Social History/Home Situation: Pt resides with his in 2 story home with 3STE and 13 steps with 2 rails to second floor. Pt independent with ambulation, ADL. 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 Equipment Owned/DME: personal FWW (Height adjusted), stand assist/lift recliner Subjective: Pt reports he feels better than he did walking in. Objective: General Observation: male semireclined on stretcher with cryocuff to right knee and IV access left forearm, present Mental Status: A+Ox4, cooperative and motivated, able to follow instructions , agreeable to participate in assessment Pain: right knee 3/10 ROM: [] Right Upper Extremity: WNL Left Upper Extremity: WNL Right Lower Extremity: Hip and ankle WNL; knee 3-92 degrees limited by kathrine wrap pt reports feels tight. Pt perform quad set without compensation, Pt performs SLR without lag with cue to initiate with quad set first. Left Lower Extremity: WNL Strength: BUE:5/5 Right Lower Extremity: Hip flexion: 3- /5; hip abduction: 3- /5; hip extension: 3- /5; knee extension: 3 /5; knee flexion: 2+ /5 ankle DF: 3+ /5 ; ankle PF: 3+ /5 Left Lower Extremity: 5/5 Sensation: intact to touch and pain Bed Mobility/Transfers: Supine to/from sit independent Sit to stand SBA Stand to sit SBA Bed to chair SBA with FWW Gait: amb with FWW initially with CGA and continues verbal cues to activate right quad during weight acceptance through mid stance then progressed to SBA . Pt with step to pattern. Pt with increased WB through BUE quick to offload right LE . Stairs: 3 4 steps and 2 6 steps with rails SBA with continuous cues for sequencing step to pattern Balance: Static Sitting: Normal Dynamic Sitting: good Static Standing: Good Dynamic Standing: Fair Special Tests: [] Mobility Limitations Standardized Measure [] [facility] AM-PAC 6 clicks Basic Mobility Inpatient Short Form: [] Raw Score: 22 CMS Score: 20.91% Informed Consent/Education: Patient instructed in purpose of PT consult. Treatment: 23028 Packet containing TKA exercise protocol has been given to patient. Education and training on initial set of exercises x 5 reps that can be done at home have been completed with patient.Pt required continues cues for quad activation during SLR to eliminate lag.Pt educated on positioning to elevate at the ankle and no pillow under knee to promote knee extension. Pt and educated on simulated transfer to elevated vehicle height with use of running board. Pt able to verbalize sequence for stairs. Assessment: Patient is 59 yo male who presents with clinical signs and symptoms consistent with current/admitting diagnoses that have resulted to mobility limitations, gait instability, generalized weakness, and impairment of motor control as demonstrated by the following impairment level findings: 1. Decreased strength to right knee major muscle groups 2. Impaired standing balance 3. Limitation of joint range of motion in right knee 4. Impaired functional activity tolerance 5. pain in right knee Impairments are contributing to the following functional limitations: 1. Inability to safely ambulate without assistive device 2. Increase completion time for mobility ADL performance 3. Increased fall risk 4. Difficulty performing stairs safely independently Patient is assessed as a low complexity based on the following: History:59-year-old male with impairment level findings, functional limitations, and past medical history as indicated above Examination: Demonstrable impairment in strength, balance, and mobility level with underlying impairments and functional limitations as documented above Presentation:stable Decision Making: low Goals: N/A. PT evaluation and 1-2 treatment sessions only for functional mobility training using recommended AD and for HEP instruction. Plan of Care/Treatment Plan: N/A. PT evaluation and 1-2 treatment session only for functional mobility training using recommended AD and for HEP instruction. DISCHARGE RECOMMENDATIONS: Home with HEP and Outpatient PT as scheduled TREATMENT CODE/TIME: 88033, [id number]/ [id number] Thank you for the opportunity to participate in the care of this patient. Crystal Kirk PT [facility]
== END 2024-11-19 14:04 | disposition home or self-care (01) ==
PROVIDERS: PCP Physician Assistant; Visit Provider Student in an Organized Health Care Education/Training Program
PROC: (CPT 27447; principal; 2024-11-19 09:15)
DX: M17.11 Unilateral primary osteoarthritis, right knee (principal); G89.18 Other acute postprocedural pain
CPT/HCPCS: 27447; 64447; 97161; 97530; C1776; J0665; J0666; J0690; J1100; J2003; J2250; J2371; J2401; J2405; J2704; J3010; J3475

== ENCOUNTER 2024-12-02 13:02 | Outpatient (CLI) | payer OTHER, SELFPAY ==
--- NOTE | 2024-12-02 12:45 | DI.RAD_ITS ---
Exam(s) XR KNEE RT 1V XR STANDING ALIGNMENT EXAM: XR STANDING ALIGNMENT and XR knee RT 1 V CLINICAL HISTORY: 1ST POST OP S/P R TKA. TECHNIQUE: 2D digital imaging was performed. Five images were obtained. COMPARISON: CR XR KNEE 3V RT from 02/08/2024 CR XR STANDING ALIGNMENT from 11/04/2024 FINDINGS: BONES: There is again seen a bone island in the proximal left femur. The hips are well maintained. Since the prior examination, the patient has undergone a right total knee arthroplasty. The orthoped ic hardware appears in good position. No evidence of loosening is seen at this time. In the left kn ee, degenerative changes are present characterized by joint space narrowing and osteophytes. Chondro calcinosis is seen in the medial femoral tibial joint. The ankles are well maintained.There is no si gnificant leg length discrepancy. SOFT TISSUE: Normal. IMPRESSION: 1. Interval placement of a right total knee arthroplasty. 2. Arthrosis of the left knee. DATA REPOSITORY: RADIATION DOSE DELIVERED:
== END 2024-12-02 13:03 | disposition home or self-care (01) ==
LOC: DIORS 13:02
PROVIDERS: PCP Physician Assistant; Referring Provider Physician Assistant; Visit Provider Student in an Organized Health Care Education/Training Program
DX: Z96.651 Presence of right artificial knee joint (principal); Z47.1 Aftercare following joint replacement surgery
CPT/HCPCS: 73560; 77073

== ENCOUNTER 2025-05-16 17:00 | Outpatient (REF) | payer OTHER, SELFPAY ==
[2025-05-16 20:14] LABS: Anion Gap 10.2 mmol/L (3-11); BUN 16 mg/dL (7-18); CO2 28.8 mmol/L (21.0-32.0); Calcium 9.0 mg/dL (8.5-10.1); Chloride 107 mmol/L (98-107); Glucose 110 mg/dL (74-106); Potassium 3.8 mmol/L (3.5-5.1); Sodium 146 mmol/L (136-145)
[2025-05-16 20:26] LABS: RBC 20-50 HPF (0-2); WBC >50 HPF (0-5)
[2025-05-19 09:09] LABS: PSA, Diagnostic 1.0 ng/mL (<=4.5)
== END 2025-05-16 17:01 | disposition home or self-care (01) ==
LOC: NCHCN 17:00
PROVIDERS: PCP Physician Assistant; Visit Provider Physician Assistant
DX: R35.1 Nocturia (principal)
CPT/HCPCS: 80048; 87077; 81015; 84153; 87086; 87186